=== PATIENT | female | born 1980 | race Two or more races ===

== ENCOUNTER 2016-08-31 18:33 | Emergency (ER) | payer SELFPAY ==
--- NOTE | 2016-08-31 18:49 | ER Document Report ---
ED Medical Screen (RME) - General Stated Complaint: ABDOMINAL PAIN Mode of Arrival: Ambulatory Information source: Patient Notes: Pt presents with lower abominal pain, more to the RLQ. Reports hx of BTL 2 years ago. Took five tests and they were all positive. I have greeted and performed a rapid initial assessment of this patient. A comprehensive ED assessment and evaluation of the patient, analysis of test results and completion of the medical decision making process will be conducted by additional ED providers. TRAVEL OUTSIDE OF THE [place] IN LAST 30 DAYS: No - Related Data Allergies/Adverse Reactions: Penicillins Allergy (Verified 05/26/14 10:44) Past Medical History - Past Medical History Cardiac Medical History: Denies: Hx Hypertension, Hx Heart Murmur GI Medical History: Denies: Hx Gastroesophageal Reflux Disease, Hx Hiatal Hernia , Hx Ulcer Musculoskeltal Medical History: Denies Hx Fibromyalgia Traumatic Medical History: Reports: Hx Fractures - RIGHT ARM FX as child Infectious Medical History: Denies: Hx HIV Physical Exam - Vital signs Vitals: Temp Pulse Resp BP Pulse Ox 98.4 F 89 18 131/82 H 100 08/31/16 18:44 08/31/16 18:44 08/31/16 18:44 08/31/16 18:44 08/31/16 18:44 Course - Vital Signs Vital signs: Temp Pulse Resp BP Pulse Ox 98.4 F 89 18 131/82 H 100 08/31/16 18:44 08/31/16 18:44 08/31/16 18:44 08/31/16 18:44 08/31/16 18:44
[2016-08-31 19:13] LABS: ABSOLUTE BASOPHILS # (AUTO) 0.1 10^3/uL (0.0-0.2); ABSOLUTE EOSINOPHILS # (AUTO) 0.2 10^3/uL (0.0-0.6); ABSOLUTE LYMPHOCYTES (AUTO) 1.9 10^3/uL (0.5-4.7); ABSOLUTE MONOCYTES (AUTO) 0.7 10^3/uL (0.1-1.4); ABSOLUTE NEUT (AUTO) 4.1 10^3/uL (1.7-8.2); BASOPHILS % (AUTO) 0.8 % (0-2); EOSINOPHILS % (AUTO) 2.4 % (0-6); HEMATOCRIT 36.3 % (36.0-47.0); HEMOGLOBIN 11.4 g/dL (12.0-15.5); HGB HCT DIFFERENCE -2.1; LYMPHOCYTES % (AUTO) 27.6 % (13-45); MEAN CORPUSCULAR HEMOGLOBIN 23.9 pg (27.0-33.4); MEAN CORPUSCULAR HGB CONC 31.4 g/dL (32.0-36.0); MEAN CORPUSCULAR VOLUME 76 fl (80-97); MONOCYTES % (AUTO) 9.6 % (3-13); RED BLOOD COUNT 4.77 10^6/uL (3.72-5.28); RED CELL DISTRIBUTION WIDTH 18.2 % (11.5-14.0); SEGMENTED NEUTROPHILS % (AUTO) 59.6 % (42-78); WHITE BLOOD COUNT 6.9 10^3/uL (4.0-10.5)
[2016-08-31 19:15] LABS: APPEARANCE,URINE CLEAR; BILIRUBIN,URINE NEGATIVE (NEGATIVE); GLUCOSE, URINE NEGATIVE (NEGATIVE); KETONES,URINE NEGATIVE (NEGATIVE); LEUKOCYTE ESTERASE,URINE NEGATIVE (NEGATIVE); NITRITE,URINE NEGATIVE (NEGATIVE); PROTEIN,URINE NEGATIVE (NEGATIVE); URINE SPECIFIC GRAVITY 1.016; UROBILINOGEN,URINE NEGATIVE mg/dL (<2.0)
[2016-08-31 19:30] LABS: ALANINE AMINOTRANSFERASE 21 U/L (9-52); ALBUMIN 4.3 g/dL (3.5-5.0); ALKALINE PHOSPHATASE 65 U/L (38-126); ANION GAP 12 (5-19); ASPARTATE AMINO TRANSFERASE 15 U/L (14-36); BILIRUBIN,TOTAL 0.3 mg/dL (0.2-1.3); BLOOD UREA NITROGEN 14 mg/dL (7-20); CALCIUM 9.2 mg/dL (8.4-10.2); CARBON DIOXIDE 20 mmol/L (22-30); CHLORIDE 107 mmol/L (98-107); CREATININE RESULT 0.62 mg/dL (0.52-1.25); GLUCOSE 86 mg/dL (75-110); POTASSIUM 3.9 mmol/L (3.6-5.0); SODIUM 138.7 mmol/L (137-145)
--- NOTE | 2016-08-31 19:45 | ER Document Report ---
ED GI/ - General Chief Complaint: Abdominal Pain Stated Complaint: ABDOMINAL PAIN Time seen by provider: 19:43 Mode of Arrival: Ambulatory Information source: Patient TRAVEL OUTSIDE OF THE [place] IN LAST 30 DAYS: No - HPI Patient complains to provider of: Missed/Late menses Onset: Last week Quality of pain: Cramping Severity at maximum: Mild Location: Pelvis Vaginal bleeding (Compared to normal period): None Associated symptoms: None Exacerbated by: Denies Relieved by: Denies Notes: 09/01/16 03:52 Patient is a 35-year-old female who reports feeling under the weather over the past week, she is also approximately one week late with her period, took several home tests that were positive, denies any bleeding or abnormal discharge, no urinary symptoms, no nausea, vomiting or diarrhea, she does report a very mild crampy pain in her right pelvic area, patient has a history of bilateral tubal ligation in 2013 - Related Data Allergies/Adverse Reactions: Penicillins Allergy (Verified 08/31/16 18:47) Past Medical History - General Information source: Patient - Social History Smoking Status: Current Every Day Smoker Chew tobacco use (# tins/day): No Frequency of alcohol use: None Drug Abuse: None Family History: Reviewed & Not Pertinent Patient has suicidal ideation: No Patient has homicidal ideation: No - Past Medical History Cardiac Medical History: Denies: Hx Hypertension, Hx Heart Murmur Renal/ Medical History: Denies: Hx Peritoneal Dialysis GI Medical History: Denies: Hx Gastroesophageal Reflux Disease, Hx Hiatal Hernia , Hx Ulcer Musculoskeltal Medical History: Denies Hx Fibromyalgia Traumatic Medical History: Reports: Hx Fractures - RIGHT ARM FX as child Infectious Medical History: Denies: Hx HIV Past Surgical History: Reports: Hx Tubal Ligation Review of Systems - Review of Systems Constitutional: No symptoms reported EENT: No symptoms reported Cardiovascular: No symptoms reported Respiratory: No symptoms reported Gastrointestinal: No symptoms reported Genitourinary: No symptoms reported Female Genitourinary: See HPI Musculoskeletal: No symptoms reported Skin: No symptoms reported Hematologic/Lymphatic: No symptoms reported Neurological/Psychological: No symptoms reported -: Yes All other systems reviewed and negative Physical Exam - Vital signs Vitals: Temp Pulse Resp BP Pulse Ox 98.4 F 89 18 131/82 H 100 08/31/16 18:44 08/31/16 18:44 08/31/16 18:44 08/31/16 18:44 08/31/16 18:44 Interpretation: Normal - General General appearance: Appears well, Alert - HEENT Head: Normocephalic, Atraumatic Eyes: Normal Pupils: PERRL - Respiratory Respiratory status: No respiratory distress Chest status: Nontender Breath sounds: Normal Chest palpation: Normal - Cardiovascular Rhythm: Regular Heart sounds: Normal auscultation Murmur: No - Abdominal Inspection: Normal Distension: No distension Bowel sounds: Normal Tenderness: Nontender Organomegaly: No organomegaly - Back Back: Normal, Nontender - Extremities General upper extremity: Normal inspection, Nontender, Normal color, Normal ROM , Normal temperature General lower extremity: Normal inspection, Nontender, Normal color, Normal ROM , Normal temperature, Normal weight bearing. No: Charles's sign - Neurological Neuro grossly intact: Yes Cognition: Normal Orientation: AAOx4 [place] Coma Scale Eye Opening: Spontaneous [place] Coma Scale Verbal: Oriented Katherine Coma Scale Motor: Obeys Commands [place] Coma Scale Total: 15 Speech: Normal Motor strength normal: LUE, RUE, LLE, RLE Sensory: Normal - Psychological Associated symptoms: Normal affect, Normal mood - Skin Skin Temperature: Warm Skin Moisture: Dry Skin Color: Normal Course - Re-evaluation Re-evalutation: 08/31/16 19:59 Patient was discussed with on-call [employer], Dr. Anaya who recommends patient be seen in the office on Friday for repeat testing, this plan was discussed with patient at bedside who acknowledges understanding and agreement - Vital Signs Vital signs: Temp Pulse Resp BP Pulse Ox 98.4 F 85 17 126/78 H 100 08/31/16 18:44 08/31/16 19:56 08/31/16 19:56 08/31/16 19:56 08/31/16 19:56 - Laboratory Result Diagrams: 08/31/16 18:50 08/31/16 18:50 Laboratory results interpreted by me: 08/31/16 08/31/16 18:50 18:50 Hgb 11.4 L MCV 76 L MCH 23.9 L MCHC 31.4 L RDW 18.2 H Carbon Dioxide 20 L Beta HCG, Quant 77.92 H Discharge - Discharge Clinical Impression: confirmed by positive blood test Condition: Stable Disposition: HOME, SELF-CARE Additional Instructions: Follow up with [facility] first thing Friday. Return to the emergency room immediately if symptoms worsen or any additional concerns.
[2016-08-31 20:07] VITALS: BP 126/78
== END 2016-08-31 20:07 | disposition home or self-care (01) ==
LOC: ER 18:33
DX: O26.91 Pregnancy related conditions, unspecified, first trimester (principal); R10.9 Unspecified abdominal pain; O99.331 Smoking (tobacco) complicating pregnancy, first trimester; Z88.0 Allergy status to penicillin; Z98.51 Tubal ligation status
CPT/HCPCS: 36415; 80053; 81001; 84702; 85025; 99284

== ENCOUNTER 2016-09-09 07:16 | Inpatient (IN) | payer MEDICAID ==
[2016-09-09 08:15] LABS: ABSOLUTE EOSINOPHILS # (AUTO) 0.1 10^3/uL (0.0-0.6); ABSOLUTE LYMPHOCYTES (AUTO) 1.1 10^3/uL (0.5-4.7); ABSOLUTE MONOCYTES (AUTO) 0.5 10^3/uL (0.1-1.4); ABSOLUTE NEUT (AUTO) 6.4 10^3/uL (1.7-8.2); BASOPHILS % (AUTO) 0.5 % (0-2); EOSINOPHILS % (AUTO) 1.6 % (0-6); HEMATOCRIT 37.4 % (36.0-47.0); HGB HCT DIFFERENCE -1.4; MEAN CORPUSCULAR HEMOGLOBIN 24.4 pg (27.0-33.4); MEAN CORPUSCULAR HGB CONC 32.1 g/dL (32.0-36.0); MEAN CORPUSCULAR VOLUME 76 fl (80-97); MONOCYTES % (AUTO) 5.7 % (3-13); RED BLOOD COUNT 4.92 10^6/uL (3.72-5.28); RED CELL DISTRIBUTION WIDTH 19.1 % (11.5-14.0); SEGMENTED NEUTROPHILS % (AUTO) 78.2 % (42-78); WHITE BLOOD COUNT 8.1 10^3/uL (4.0-10.5)
[2016-09-09] MEDS ORDERED: DEXAMETHASONE SOD PHOSPHATE INJ 4 MG/1 ML VIAL ONE (08:28)
[2016-09-09] MEDS ORDERED: GLYCOPYRROLATE INJ 0.4 MG/2 ML VIAL ONE (08:28)
[2016-09-09] MEDS ORDERED: VECURONIUM BROMIDE INJ 10 MG VIAL IV ONE (08:28)
[2016-09-09] MEDS ORDERED: LIDOCAINE 2% INJ-PF (20 MG/ML) 10 ML AMPUL ONE (08:28)
[2016-09-09] MEDS ORDERED: SUCCINYLCHOLINE CHLORIDE INJ 200 MG/10 ML VIAL ONE (08:28)
[2016-09-09] MEDS ORDERED: ONDANSETRON HCL INJ/PF 4 MG/2 ML SDV ONE (08:28)
[2016-09-09] MEDS ORDERED: NEOSTIGMINE METHYLSULFATE 10 MG/10 ML VIAL ONE (08:28)
[2016-09-09 08:33] LABS: ALANINE AMINOTRANSFERASE 24 U/L (9-52); ALBUMIN 4.2 g/dL (3.5-5.0); ALKALINE PHOSPHATASE 67 U/L (38-126); ANION GAP 9 (5-19); ASPARTATE AMINO TRANSFERASE 20 U/L (14-36); BILIRUBIN,TOTAL 0.2 mg/dL (0.2-1.3); BLOOD UREA NITROGEN 12 mg/dL (7-20); CALCIUM 9.3 mg/dL (8.4-10.2); CARBON DIOXIDE 21 mmol/L (22-30); CHLORIDE 109 mmol/L (98-107); CREATININE RESULT 0.56 mg/dL (0.52-1.25); GLUCOSE 93 mg/dL (75-110); LIPASE 157.9 U/L (23-300); POTASSIUM 4.3 mmol/L (3.6-5.0); SODIUM 139.3 mmol/L (137-145); TOTAL PROTEIN 6.9 g/dL (6.3-8.2)
[2016-09-09 09:16] LABS: APPEARANCE,URINE CLEAR; BILIRUBIN,URINE NEGATIVE (NEGATIVE); GLUCOSE, URINE NEGATIVE (NEGATIVE); KETONES,URINE NEGATIVE (NEGATIVE); LEUKOCYTE ESTERASE,URINE NEGATIVE (NEGATIVE); NITRITE,URINE NEGATIVE (NEGATIVE); PROTEIN,URINE NEGATIVE (NEGATIVE); URINE SPECIFIC GRAVITY 1.011; UROBILINOGEN,URINE NEGATIVE mg/dL (<2.0)
[2016-09-09] MEDS ORDERED: NORMAL SALINE 1000 ML 1,000 ML IV ONE (11:00)
[2016-09-09] MEDS ORDERED: ONDANSETRON HCL INJ/PF 4 MG/2 ML SDV IV ONE (11:05)
[2016-09-09] MEDS ORDERED: MORPHINE SULFATE 10 MG/ML INJ IV ONE (11:05)
--- NOTE | 2016-09-09 13:35 | ER Document Report ---
ED General - General Chief Complaint: Vag Bleeding, +preg <12wks Stated Complaint: CRAMPING TRAVEL OUTSIDE OF THE [place] IN LAST 30 DAYS: No - HPI Patient complains to provider of: vaginal bleeding Notes: Patient was seen on August 31 found to be with a beta-hCG of 77. Patient has a history of bilateral ligation of her tubes. Patient since that time states that she has [facility] with elevation in her beta-hCG coming in today for lower abdominal cramping and vaginal bleeding. Otherwise patient is seem stable that I received fevers chills nausea vomiting diarrhea. Patient states minimal bleeding is yet to change a pad. - Related Data Allergies/Adverse Reactions: Penicillins Allergy (Verified 09/09/16 07:26) Past Medical History - Social History Smoking Status: Current Every Day Smoker Chew tobacco use (# tins/day): No Frequency of alcohol use: None Drug Abuse: None Family History: Reviewed & Not Pertinent Patient has suicidal ideation: No Patient has homicidal ideation: No - Past Medical History Cardiac Medical History: Denies: Hx Hypertension, Hx Heart Murmur Renal/ Medical History: Denies: Hx Peritoneal Dialysis GI Medical History: Denies: Hx Gastroesophageal Reflux Disease, Hx Hiatal Hernia , Hx Ulcer Musculoskeltal Medical History: Denies Hx Fibromyalgia Traumatic Medical History: Reports: Hx Fractures - RIGHT ARM FX as child Infectious Medical History: Denies: Hx HIV Past Surgical History: Reports: Hx Tubal Ligation - Immunizations Hx Diphtheria, Pertussis, Tetanus Vaccination: Yes Review of Systems - Review of Systems Constitutional: No symptoms reported EENT: No symptoms reported Cardiovascular: No symptoms reported Respiratory: No symptoms reported Gastrointestinal: No symptoms reported Genitourinary: No symptoms reported Female Genitourinary: Vaginal bleeding Musculoskeletal: No symptoms reported Skin: No symptoms reported Hematologic/Lymphatic: No symptoms reported Neurological/Psychological: No symptoms reported -: Yes All other systems reviewed and negative Physical Exam - Vital signs Vitals: Temp Pulse Resp BP Pulse Ox 98.0 F 102 H 20 125/85 100 09/09/16 07:24 09/09/16 07:24 09/09/16 07:24 09/09/16 07:24 09/09/16 07:24 Interpretation: Normal - General General appearance: Appears well, Alert - HEENT Head: Normocephalic, Atraumatic Eyes: Normal Pupils: PERRL - Respiratory Respiratory status: No respiratory distress Chest status: Nontender Breath sounds: Normal Chest palpation: Normal - Cardiovascular Rhythm: Regular Heart sounds: Normal auscultation Murmur: No - Abdominal Inspection: Normal Distension: No distension Bowel sounds: Normal Tenderness: Nontender Organomegaly: No organomegaly - Back Back: Normal, Nontender - Extremities General upper extremity: Normal inspection, Nontender, Normal color, Normal ROM , Normal temperature General lower extremity: Normal inspection, Nontender, Normal color, Normal ROM , Normal temperature, Normal weight bearing. No: Charles's sign - Neurological Neuro grossly intact: Yes Cognition: Normal Orientation: AAOx4 Katherine Coma Scale Eye Opening: Spontaneous Katherine Coma Scale Verbal: Oriented Katherine Coma Scale Motor: Obeys Commands [place] Coma Scale Total: 15 Speech: Normal Motor strength normal: LUE, RUE, LLE, RLE Sensory: Normal - Psychological Associated symptoms: Normal affect, Normal mood - Skin Skin Temperature: Warm Skin Moisture: Dry Skin Color: Normal Course - Re-evaluation Re-evalutation: 09/09/16 14:21 Ultrasound shows a enlargement possible cyst in the adnexa proximal a 2 cm. Patient does not have the appropriate doubling of her beta-hCG from the 25th. Concern about ectopic . I did discuss with [employer] on-call Dr. Chapin who will admit and take the patient to the OR patient otherwise hemolymph be stable. Type and screen has been ordered for the patient collects also been ordered for the patient. Patient will be remained nothing by mouth. - Vital Signs Vital signs: Temp Pulse Resp BP Pulse Ox 98.0 F 102 H 20 125/85 100 09/09/16 07:24 09/09/16 07:24 09/09/16 07:24 09/09/16 07:24 09/09/16 07:24 - Laboratory Result Diagrams: 09/09/16 07:55 09/09/16 07:55 Laboratory results interpreted by me: 09/09/16 09/09/16 09/09/16 07:55 07:55 08:55 MCV 76 L MCH 24.4 L RDW 19.1 H Seg Neutrophils % 78.2 H Chloride 109 H Carbon Dioxide 21 L Beta HCG, Quant 169.11 H Urine Blood LARGE H Critical Care Note - Critical Care Note Total time excluding time spent on procedures (mins): 35 Comments: Multiple evaluations were patient with ectopic Discharge - Discharge Clinical Impression: Ectopic Qualifiers: Location of ectopic : unspecified location Intrauterine status: unspecified Qualified Code(s): O00.90 - Unspecified ectopic without intrauterine Condition: Good Disposition: ADMITTED OBSERVATION Unit Admitted: OR
[2016-09-09] MEDS ORDERED: DOXYCYCLINE HYCLATE INJ 100 MG VIAL IV ONE (13:49)
[2016-09-09] MEDS ORDERED: DEXMEDETOMIDINE INJ 80 MCG/20 ML VIAL IV ONE (13:53)
[2016-09-09] MEDS ORDERED: MIDAZOLAM 2 MG/2 ML INJ ONE (13:53)
[2016-09-09] MEDS ORDERED: PROPOFOL INJ 200 MG/20 ML VIAL IV ONE (13:53)
[2016-09-09] MEDS ORDERED: FENTANYL CITRATE INJ/PF 250 MCG/5 ML AMPULE ONE (13:53)
[2016-09-09] MEDS ORDERED: BUPIVACAINE HCL 0.25 % INJ/PF (2.5 MG/1 ML) 30 ML VIAL ONE ×2 (14:00→15:08)
[2016-09-09 14:26] LABS: PROTHROMBIN TIME 12.1 SEC (11.4-15.4)
[2016-09-09 14:27] LABS: PARTIAL THROMBOPLASTIN TIME 25.7 SEC (23.5-35.8)
[2016-09-09] MEDS ORDERED: LIDOCAINE 1%/EPINEPHRINE INJ 20 ML VIAL ONE (14:35)
[2016-09-09] MEDS ORDERED: DIPHENHYDRAMINE HCL 50 MG/ML VIAL IV PRN (15:47)
[2016-09-09] MEDS ORDERED: MEPERIDINE HCL/PF INJ 25 MG/1 ML DISP.SYRIN IV PRN (15:47)
[2016-09-09] MEDS ORDERED: MORPHINE SULFATE 10 MG/ML INJ IV PRN (15:47)
[2016-09-09] MEDS ORDERED: PROMETHAZINE HCL INJ 25 MG/1 ML VIAL IV PRN ×2 (15:47)
[2016-09-09] MEDS ORDERED: FENTANYL CITRATE INJ/PF 100 MCG/2 ML AMPUL IV PRN ×3 (15:47)
[2016-09-09] MEDS ORDERED: BUPIVACAINE HCL 0.25 % INJ/PF (2.5 MG/1 ML) 30 ML VIAL INJ ONE (16:00)
[2016-09-09] MEDS ORDERED: LIDOCAINE 1%/EPINEPHRINE INJ 20 ML VIAL INJ ONE (16:10)
[2016-09-09] MEDS ORDERED: HYDROMORPHONE HCL INJ/PF 2 MG/ML AMPULE ONE (16:24)
[2016-09-09] MEDS: FENTANYL CITRATE INJ/PF 100 MCG/2 ML AMPUL ONE ×3 (16:40→16:50)
[2016-09-09] MEDS ORDERED: ACETAMINOPHEN 100 ML IV ONE (16:46)
[2016-09-09] MEDS ORDERED: OXYCODONE-ACETAMINOPHEN 5-325 MG TABLET PO PRN (17:34)
--- NOTE | 2016-09-09 17:40 | PDOC H&P ---
History of Present Illness Admission Date/PCP: SAQIB GARY MD Patient complains of: vaginal bleeding and abdominal pain. Vaginal bleeding increasing History of Present Illness: CATHY LOPEZ is a 35 year old female began having left sided pain last pm and then vaginal bleeding this am with increasing amount since arrival to ER today at 0700. Last po intake yesterday. Past Medical History LMP: 08/01/2016 Gynecological Infection: No 1 Baby 1 Delivery: Spontaneous Vaginal Delivery 2 Baby 2 Delivery: : Low Cervical, Transverse 3 Baby 3 Delivery: : Low Cervical, Transverse Cardiac Medical History: Reports: None Denies: Hypertension, Heart Murmur Pulmonary Medical History: Reports: None EENT Medical History: Reports: None Neurological Medical History: Reports: None Endocrine Medical History: Reports: None Renal/ Medical History: Reports: None Malignancy Medical History: Reports: None GI Medical History: Reports: None Denies: Gastroesophageal Reflux Disease, Hiatal Hernia Musculoskeltal Medical History: Reports: None Denies: Fibromyalgia Skin Medical History: Reports: None Psychiatric Medical History: Reports: None Traumatic Medical History: Reports: None Infectious Medical History: Reports: None Denies: HIV Past Surgical History Past Surgical History: Reports: Section - x 2, Tubal Ligation Social History Information Source: Patient 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 [employer] Lives with: Family Smoking Status: Never Smoker Frequency of Alcohol Use: Rare Hx Recreational Drug Use: No Drugs: None Hx Prescription Drug Abuse: No - Advance Directive Resuscitation Status: Full Code Family History Family History: Reviewed & Not Pertinent Parental Family History Reviewed: No Children Family History Reviewed: NA Sibling(s) Family History Reviewed.: NA Medication/Allergy Home Medications: No Home Medications 09/09/16 Allergies/Adverse Reactions: Penicillins Allergy (Verified 09/09/16 07:26) Review of Systems Constitutional: PRESENT: as per HPI Cardiovascular: ABSENT: chest pain, dyspnea on exertion, edema, orthropnea, palpitations Respiratory: ABSENT: cough, hemoptysis Gastrointestinal: PRESENT: abdominal pain. ABSENT: constipation, diarrhea, hematemesis, hematochezia, nausea, vomiting Genitourinary: ABSENT: dysuria, hematuria Musculoskeletal: ABSENT: joint swelling Integumentary: ABSENT: rash, wounds Neurological: ABSENT: abnormal gait, abnormal speech, confusion, dizziness, focal weakness, syncope Psychiatric: ABSENT: anxiety, depression, homidical ideation, suicidal ideation Endocrine: ABSENT: cold intolerance, heat intolerance, polydipsia, polyuria Hematologic/Lymphatic: ABSENT: easy bleeding, easy bruising Physical Exam - Physical Exam Vital Signs: Temp Pulse Resp BP Pulse Ox 98.0 F 102 H 20 125/85 100 09/09/16 07:24 09/09/16 07:24 09/09/16 07:24 09/09/16 07:24 09/09/16 07:24 Intake & Output 09/08/16 09/09/16 09/10/16 06:59 06:59 06:59 Weight 69.7 kg General appearance: PRESENT: no acute distress, well-developed, well-nourished Head exam: PRESENT: atraumatic, normocephalic Respiratory exam: PRESENT: clear to auscultation evelyn, symmetrical, unlabored Cardiovascular exam: PRESENT: RRR. ABSENT: diastolic murmur, rubs, systolic murmur Pulses: PRESENT: normal dorsalis pedis pul, +2 pedal pulses bilateral Vascular exam: PRESENT: normal capillary refill GI/Abdominal exam: PRESENT: normal bowel sounds, soft, tenderness - LLQ. ABSENT : distended, guarding, mass, organolmegaly, rebound Rectal exam: PRESENT: deferred Extremities exam: PRESENT: full ROM. ABSENT: calf tenderness, clubbing, pedal edema Musculoskeletal exam: PRESENT: ambulatory Neurological exam: PRESENT: alert, awake, oriented to person, oriented to place , oriented to time, oriented to situation, CN II-XII grossly intact. ABSENT: motor sensory deficit Psychiatric exam: PRESENT: appropriate affect, normal mood. ABSENT: homicidal ideation, suicidal ideation Skin exam: PRESENT: dry, intact, warm. ABSENT: cyanosis, rash Result Laboratory Results: 09/09/16 07:55 09/09/16 07:55 09/09/16 09/09/16 09/09/16 07:55 07:55 07:55 WBC 8.1 RBC 4.92 Hgb 12.0 Hct 37.4 MCV 76 L MCH 24.4 L MCHC 32.1 RDW 19.1 H Plt Count 288 Seg Neutrophils % 78.2 H Lymphocytes % 14.0 Monocytes % 5.7 Eosinophils % 1.6 Basophils % 0.5 Absolute Neutrophils 6.4 Absolute Lymphocytes 1.1 Absolute Monocytes 0.5 Absolute Eosinophils 0.1 Absolute Basophils 0.0 Sodium 139.3 Potassium 4.3 Chloride 109 H Carbon Dioxide 21 L Anion Gap 9 BUN 12 Creatinine 0.56 Est GFR ( Amer) > 60 Est GFR (Non-Af Amer) > 60 Glucose 93 Calcium 9.3 Total Bilirubin 0.2 AST 20 ALT 24 Alkaline Phosphatase 67 Total Protein 6.9 Albumin 4.2 Lipase 157.9 Urine Color Urine Appearance Urine pH Ur Specific Elizabeth Urine Protein Urine Glucose (UA) Urine Ketones Urine Blood Urine Nitrite Ur Leukocyte Esterase Urine WBC (Auto) Urine RBC (Auto) Blood Type A POSITIVE 09/09/16 08:55 WBC RBC Hgb Hct MCV MCH MCHC RDW Plt Count Seg Neutrophils % Lymphocytes % Monocytes % Eosinophils % Basophils % Absolute Neutrophils Absolute Lymphocytes Absolute Monocytes Absolute Eosinophils Absolute Basophils Sodium Potassium Chloride Carbon Dioxide Anion Gap BUN Creatinine Est GFR ( Amer) Est GFR (Non-Af Amer) Glucose Calcium Total Bilirubin AST ALT Alkaline Phosphatase Total Protein Albumin Lipase Urine Color STRAW Urine Appearance CLEAR Urine pH 5.0 Ur Specific Elizabeth 1.011 Urine Protein NEGATIVE Urine Glucose (UA) NEGATIVE Urine Ketones NEGATIVE Urine Blood LARGE H Urine Nitrite NEGATIVE Ur Leukocyte Esterase NEGATIVE Urine WBC (Auto) 2 Urine RBC (Auto) 4 Blood Type Impressions: Transvaginal US 09/09/16 07:44 IMPRESSION: NO VISUALIZED INTRA- OR EXTRAUTERINE . bHCG LEVEL TOO LOW TO EXPECT VISUALIZATION OF . ECTOPIC CANNOT BE EXCLUDED. FOLLOW-UP ULTRASOUND AND SERIAL BHCG LEVELS STRONGLY RECOMMENDED TO ACCURATELY ASSESS STATUS. Status: Image reviewed by me Assessment & Plan - Diagnosis (1) Ectopic Qualifiers: Location of ectopic : unspecified location Intrauterine status: unspecified Qualified Code(s): O00.90 - Unspecified ectopic without intrauterine Is this a current diagnosis for this admission?: YesPlan: Pt with h/o BTL in 2013 with prior c/s now with positive UPT on 08/31/2016 and LMP 08/01/2016. 5+4ega by LMP. BHCG On 08/31/2016 77 and repeat BHCG was 137 on 09/02 (sarai by greater than 53%). No f/u since then. BHCG today is 169. Plan for Operative L/S with Bilateral Salpingectomy and D&C. 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
--- NOTE | 2016-09-09 20:00 | Operative Report ---
Operative Report DATE OF SURGERY: 09/09/16 PREOPERATIVE DIAGNOSIS: Suspected Ectopic versus Failed IUP, History of BTL POSTOPERATIVE DIAGNOSIS: Likely Ruptured Ectopic OPERATION: EUA, Operative L/S wit Bilateral Salpingectomy, Paracervical Block, Dilation & Currettage ANESTHESIA: GA PROCEDURE: Preoperative diagnosis: Multiparity, Prior Bilateral Tubal Ligation, Positive UPT with low BHCG and vaginal bleeding with LLQ abdominal pain, Failed IUP versus Ectopic, Undesired Fertility Postpoperative diagnosis: Same as above likely Ectopic in right fallopian tube Procedure: Examination under anesthesia, Laparoscopic bilateral salpingectomy, Paracervical Block, Suction D&C Water Service Supervisor: None Anesthesia: General Endotracheal tube Anesthesiologist: Mc Burk CRNA Complications: None Estimated blood loss: [less than 10ml for surgery, approximately 50ml of hemoperitoneum] IV fluids: [2100ml] Urine output: [100ml] Specimens: [Bilateral fallopian tubes, endometrial currettings] Findings: [On laparoscopy approx 50ml of hemoperitoneum noted in anterior and post cul de sac and minimal blood extending in paracolic gutters, Uterus appears normal, Ovaries normal except for simple appearing cyst within the left ovary. Proximal and distal fallopian tube portions visualized bilaterally and both fallopian tubes appear bisected with approximately 1 cm of proximal tube remaining on the right and approximately 2 cm of proximal tube remaining on the left. Right fallopian tube distal portion is dilated and blue appearing consistent with probable ectopic . On dilation and curettage small amount of decidual appearing tissue returned in sharp and suction curettage minimal bleeding after completion of curettage ] Indications: [35yo with history of section x 2 and history of vaignal delivery presents for LLQ abdominal pain and vaginal bleeding with positive test. Of note pt has a history of BTL in 2013. She was seen on 225 in the ER with BHCG of 77 then on 09/02 in office BHCG 137 then patient presented today with above pain and vaginal bleeding. BHCG today was 169. US with no e/o IUP or ectopic. Reviewed with patient diagnosis of failed IUP versus ectopic in the setting of a prior bilateral tubal ligation. Recommended patient to go to the operating room for operative laparoscopy and bilateral salpingectomy due to failed bilateral tubal ligation in conjunction with a suction D&C for vaginal bleeding and unknown location of the . The risks benefits and alternatives to all these procedures were reviewed with the patient and the patient desired to proceed with planned procedure.] Procedure: The patient was taken to the operating room where general anesthesia was obtained without difficulty. The patient was then examined under anesthesia with findings as noted above with a small anteverted uterus and possible left adnexal mass. She was then placed in dorsal supine lithotomy position and prepped and draped in the normal sterile fashion. [place] speculum was then placed in the patient's vagina and the anterior lip of the cervix grasped with a single-tooth tenaculum. A Optiview uterine manipulator was then advanced into the uterus to provide a means of manipulation of the uterus. The speculum and tenaculum were then removed from the patient's cervix and vagina. Attention was then turned to the patient's abdomen where a 5 mm infraumbilical skin incision was then made. The Optiview trocar with 0 laparoscope was then advanced without difficulty under direct visualization with the Optiview trocar after insufflation via Verees needle inserted in the usual fashion.. This was performed while tenting the abdominal wall and these will fashion. Intraperitoneal placement was confirmed by the direct visualization. Pneumoperitoneum was then obtained with approximately 4 L carbon dioxide gas. Survey of the patient's abdomen and pelvis revealed findings as noted above. A second skin incision was then made approximately 3 cm superior 4 cm medial to the anterior superior iliac spine on the left and then a third skin incision was made approximately 3 cm superior to the lower incision. These incisions were made under direct visualization with the laparoscope. The second and third trochars were then advanced under direct visualization of the laparoscope at the sites. The right fallopian tube was then identified and followed out to the fimbriated end and the LigaSure device was used to clamp and cauterize and cut the mesosalpinx extending from the fimbriated end to the bisected edge then removing the proximal portion to the cornua of the uterus thus removing the right fallopian tube in its entirety in two sections. The right ovary was noted to be normal and vasculature remained intact to this ovary. Attention was then turned to the left adnexa at which time the left fallopian tube was identified and followed out to the fimbriated end. LigaSure device was then used to clamp and cauterize and cut the mesosalpinx extending from the fimbriated end of the left fallopian tube to the bisected edge then removing the proximal portion of the fallopian tube to the uterine cornual thus removing the left fallopian tube in its entirety in two sections. The left and right fallopian tubes were removed easily through the endobag which was placed via the infraumbilical port which was changed to a 10mm port. All operative sites were visualized and noted to be hemostatic. The 2 additional trochars on the patient's left were then removed under direct visualization. The 10 mm trocar was then removed and abdominal insufflation was removed. The fascia at the 10 mm trocar site was closed with 0 Vicryl on a UR 6 needle. The skin at all trocar sites were closed with 3-0 Monocryl in a subcuticular fashion with overlying Dermabond. Attention was then turned to the patient's vagina for suction dilation and curettage portion of the procedure. Exam under anesthesia was performed and noted above. A speculum was placed in the vagina. The HUMI uterine manipulator was removed from the patient's cervix and uterus. The anterior cervix was grasped with a single-tooth tenaculum and the uterus sounded to [9 cm ] after paracervical block was performed with 8 mL of 1% lidocaine with epinephrine. The cervix was noted to be dilated 1 cm at the beginning of the procedure. Sequential dilators were then used to dilate the cervix to accommodate the the 8 mm suction curet curved. The 8 mm curved suction curet was gently advanced in the usual fashion and good return of tissue. The suction device was then activated and the curet rotated to clear the uterus of the products of conception. A sharp curettage was then performed. The suction device was then gently reintroduced and activated and the curet rotated to clear the uterus of conception which was loosened with recent sharp curettage. The sharp curettage was then performed again until a gritty texture was noted and the cavity was felt to be empty of further tissue. At this time there was minimal bleeding noted from the cervix. All instruments were removed from the patient's cervix and vagina. Silver nitrate was applied to the tenaculum site for hemostasis. Sponge lap needle and instrument counts are correct 2. Doxycycline 100 mg IV was The patient tolerated the procedure well and was taken to the recovery area awake and in stable condition.
[2016-09-09] MEDS ORDERED: SIMETHICONE 80 MG TAB.CHEW PO PRN (20:50)
[2016-09-10] MEDS ORDERED: SIMETHICONE 80 MG TAB.CHEW PO PRN (07:41)
[2016-09-10 07:45] LABS: ABSOLUTE LYMPHOCYTES (AUTO) 1.8 10^3/uL (0.5-4.7); ABSOLUTE MONOCYTES (AUTO) 0.7 10^3/uL (0.1-1.4); ABSOLUTE NEUT (AUTO) 6.3 10^3/uL (1.7-8.2); BASOPHILS % (AUTO) 0.5 % (0-2); EOSINOPHILS % (AUTO) 0.4 % (0-6); HEMATOCRIT 31.3 % (36.0-47.0); HEMOGLOBIN 10.1 g/dL (12.0-15.5); LYMPHOCYTES % (AUTO) 20.6 % (13-45); MEAN CORPUSCULAR HGB CONC 32.4 g/dL (32.0-36.0); MEAN CORPUSCULAR VOLUME 77 fl (80-97); MONOCYTES % (AUTO) 7.7 % (3-13); RED BLOOD COUNT 4.06 10^6/uL (3.72-5.28); RED CELL DISTRIBUTION WIDTH 18.7 % (11.5-14.0); SEGMENTED NEUTROPHILS % (AUTO) 70.8 % (42-78); WHITE BLOOD COUNT 8.9 10^3/uL (4.0-10.5)
[2016-09-10 08:59] VITALS: BP 115/72
--- NOTE | 2016-09-10 09:02 | PDOC DISCHARGE SUMMARY ---
General - Admit/Disc Date/PCP Admission Date/Primary Care Provider: 09/09/16 13:48 SAQIB GARY MD Discharge Date: 09/10/16 - Discharge Diagnosis (1) Ectopic Is this a current diagnosis for this admission?: YesSummary: underwent laparoscopic b/l salpingectomy and evacuation of ectopic. doing well. bhcg has gone down by half since procedure. - Additional Information Resuscitation Status: Full Code Discharge Activity: Activity As Tolerated, Balance Activity w/Rest, No Driving, No Lifting Over 10 Pounds, No Lifting/Push/Pulling, Pelvic Rest, No tub bath Home Medications: No Home Medications 09/09/16 History of Present Illness History of Present Illness: CATHY LOPEZ is a 35 year old female Hospital Course Hospital Course: see above Physical Exam - Physical Exam Vital Signs: Temp Pulse Resp BP Pulse Ox 98.1 F 86 16 120/77 98 09/10/16 08:21 09/10/16 08:21 09/10/16 08:21 09/10/16 08:21 09/10/16 08:21 Intake & Output 09/09/16 09/10/16 09/11/16 06:59 06:59 06:59 Intake Total 2980 Output Total 800 Balance 2180 General appearance: PRESENT: no acute distress, cooperative - incisions c/d/ intact. no evidence of infection. Result Laboratory Results: 09/10/16 06:55 09/09/16 09/10/16 13:50 06:55 WBC 8.9 RBC 4.06 Hgb 10.1 L Hct 31.3 L MCV 77 L MCH 25.0 L MCHC 32.4 RDW 18.7 H Plt Count 239 Seg Neutrophils % 70.8 Lymphocytes % 20.6 Monocytes % 7.7 Eosinophils % 0.4 Basophils % 0.5 Absolute Neutrophils 6.3 Absolute Lymphocytes 1.8 Absolute Monocytes 0.7 Absolute Eosinophils 0.0 Absolute Basophils 0.0 Blood Type A POSITIVE Antibody Screen NEGATIVE Impressions: Transvaginal US 09/09/16 07:44 IMPRESSION: NO VISUALIZED INTRA- OR EXTRAUTERINE . bHCG LEVEL TOO LOW TO EXPECT VISUALIZATION OF . ECTOPIC CANNOT BE EXCLUDED. FOLLOW-UP ULTRASOUND AND SERIAL BHCG LEVELS STRONGLY RECOMMENDED TO ACCURATELY ASSESS STATUS. Plan Discharge Plan: discharge home. follow up in a week in office. Time Spent: Less than 30 Minutes
== END 2016-09-10 11:22 | disposition home or self-care (01) | DRG 777 ==
LOC: ER 07:16 → EH 13:48 → UNDOADMIN 13:59 → EH 13:59 → 2S 17:37
PROVIDERS: ADMIT Student in an Organized Health Care Education/Training Program; ATTEND Student in an Organized Health Care Education/Training Program
PROC: 0UT74ZZ Resection of Bilateral Fallopian Tubes, Percutaneous Endoscopic Approach (ICD-10-PCS; 2016-09-09)
PROC: 10T24ZZ Resection of Products of Conception, Ectopic, Percutaneous Endoscopic Approach (ICD-10-PCS; 2016-09-09)
PROC: 10D27ZZ Extraction of Products of Conception, Ectopic, Via Natural or Artificial Opening (ICD-10-PCS; principal; 2016-09-09 14:45)
DX: O00.90 Unspecified ectopic pregnancy without intrauterine pregnancy (principal); N93.9 Abnormal uterine and vaginal bleeding, unspecified; Z98.51 Tubal ligation status; Z3A.00 Weeks of gestation of pregnancy not specified
CPT/HCPCS: 36415; 76817; 80053; 81001; 83690; 840; 84702; 85025; 85610; 85730; 86850; 86900; 86901; 88305; 93976; 96361; 96374; 96375; 99291; J0131; J0330; J1100; J1170; J2250; J2270; J2405; J2704; J3010; J3490; J7030